=== PATIENT | male | born 1995 | race Caucasian/White ===

== ENCOUNTER 2020-04-18 18:07 | Emergency (ER) | payer OTHER ==
[2020-04-18 18:49] VITALS: BP 117/96
--- NOTE | 2020-04-18 19:06 | ER Document Report ---
ED ENT - General Chief Complaint: Ear Pain Stated Complaint: LEFT EAR PAIN/PRESSURE Time Seen by Provider: 04/18/20 18:52 Primary Care Provider: [facility] [Provider Group] - Follow up as needed LUPILLO ARREDONDO MD [ACTIVE STAFF] - Follow up as needed Mode of Arrival: Ambulatory Information source: Patient - HPI Patient complains to provider of: Ear problem Notes: Patient here with complaints of left ear pain. The patient has a history of some chronic ear issues. He states that about 4 hours ago he fell he had some water in his left ear. He states his girlfriend put peroxide in it and then put alcohol in his ear. He states after putting alcohol in his ears had severe pain in the left ear. No fever. Pain is constant, moderate to severe, worse with touching the ear. He denies any nausea, vomiting, diarrhea. No chest pain or shortness of breath. No severe headache. No blurred or loss of vision. No other complaints. - Related Data Allergies/Adverse Reactions: No Known Allergies Allergy (Verified 04/18/20 18:49) Past Medical History - Social History Smoking Status: Former Smoker Frequency of alcohol use: None Drug Abuse: None Family History: Reviewed & Not Pertinent Review of Systems - Review of Systems -: Yes All other systems reviewed and negative Physical Exam - Vital signs Vitals: Temp Pulse Resp BP Pulse Ox 97.9 F 66 20 117/96 H 99 04/18/20 18:48 04/18/20 18:48 04/18/20 18:48 04/18/20 18:48 04/18/20 18:48 - Notes Notes: GENERAL: alert, cooperative, nontoxic, no distress. HEAD: normocephalic, atraumatic EYES: conjunctiva pink without discharge, no external redness or swelling. EARS: no external swelling, no external redness, no mastoid redness, swelling, tenderness. Swelling, redness and drainage to the left ear canal with tenderness to palpation to the left tragus. Small amount of drainage noted. TM normal, no perforation, no otitis media. NOSE: atraumatic, no external swelling. clear rhinorrhea noted. MOUTH/THROAT: mucous membranes moist and pink, posterior pharynx without erythema, swelling, exudate. No trismus or drooling. Voice is normal, no stridor. NECK: soft, supple, full range of motion, no meningismus. CHEST: no distress, lungs clear and equal throughout. No wheezing, rales, rhonchi. CARDIAC: regular rate and rhythm, no murmur EXTREMITIES: full range of motion of all extremities. No redness, no swelling. NEURO: alert and oriented A&O3, no focal deficits, full range of motion of all extremities. PYSCH: appropriate mood, affect. Patient is cooperative. SKIN: pink, warm, dry, no rash. Course - Re-evaluation Re-evalutation: 04/18/20 19:07 Patient is nontoxic-appearing with stable vitals. Here with complaints of left ear pain. He states he had some water in his ear and his girlfriend put some peroxide and alcohol in his ear and he started having severe pain after that. On exam he is noted to have left otitis externa. No sign of mastoiditis or otitis media. Patient be discharged home with [facility], Evolerorodex, a small supply of [place]. Follow-up with his primary care doctor or ENT if not better in the next 3 to 5 days, sooner for worsening pain, high fever, spreading redness, persistent vomiting, or any further concerns. The patient's emergency department workup and current diagnosis were explained to the patient and or family. Follow-up instructions were provided. Medications if prescribed were discussed. Instructions for when to return to the emergency department including specific worrisome symptoms were discussed with the patient and/or family. - Vital Signs Vital signs: Temp Pulse Resp BP Pulse Ox 97.9 F 66 20 117/96 H 99 04/18/20 18:48 04/18/20 18:48 04/18/20 18:48 04/18/20 18:48 04/18/20 18:48 - Laboratory Results Critical Laboratory Results Reviewed: No Critical Results - Radiology Results Critical Radiology Results Reviewed: No Critical Results Discharge - Discharge Clinical Impression: Otitis externa Qualifiers: Otitis externa type: unspecified type Chronicity: acute Laterality: left Qualified Code(s): H60.502 - Unspecified acute noninfective otitis externa, left ear Condition: Stable Disposition: HOME, SELF-CARE Instructions: Use of Ear Drops ([facility]), Otitis Externa ([facility]) Additional Instructions: Take medications as prescribed. Drink plenty of fluids. Avoid sticking anything in your ear aside from the eardrops. Follow-up if not better in the next 2 to 3 days, sooner for worsening pain, high fever, persistent vomiting, redness or swelling around the outside of the ear, or for any further concerns. Prescriptions: Ciprofloxacin HCl/Dexameth [Ciprodex Otic Suspension 7.5 ml Bottle] 4 drop OT BID #1 bottle Ciprofloxacin HCl/Dexameth [Ciprodex Otic Suspension 7.5 ml Bottle] 4 drop OT BID #1 bottle Ciprofloxacin HCl/Dexameth [Ciprodex Otic Suspension 7.5 ml Bottle] 4 drop OT BID #1 bottle Hydrocodone/Acetaminophen [[place] 5-325 mg Tablet] 1 tab PO Q6H PRN #6 tab PRN Reason: Hydrocodone/Acetaminophen [[place] 5-325 mg Tablet] 1 tab PO Q6H PRN #6 tab PRN Reason: Hydrocodone/Acetaminophen [[place] 5-325 mg Tablet] 1 tab PO Q6H PRN #6 tab PRN Reason: Diclofenac Sodium [Voltaren 50 Mg Tablet.] 50 mg PO BID #20 tablet. Diclofenac Sodium [Voltaren 50 Mg Tablet.] 50 mg PO BID #20 tablet. Referrals: [facility] [Provider Group] - Follow up as needed LUPILLO ARREDONDO MD [ACTIVE STAFF] - Follow up as needed
== END 2020-04-18 18:58 | disposition home or self-care (01) ==
LOC: ER 18:07
DX: H60.502 Unspecified acute noninfective otitis externa, left ear (principal)
CPT/HCPCS: 99284